=== PATIENT | female | born 1950 | race Caucasian/White ===

== ENCOUNTER 2021-04-26 15:24 | Outpatient (CLI) | payer MEDICARE ==
--- NOTE | 2021-04-26 17:11 | XRAY Report ---
PROCEDURE: Foot 2 View LT INDICATIONS: FOOT JOINT PAIN,LEFT TECHNIQUE: 2 views of the foot were acquired. COMPARISON: None FINDINGS: Bones: No fractures or dislocations. No suspicious bony lesions. Scattered IP degenerative narrowi ng. Soft tissues: No tibiotalar joint effusion. Achilles tendon appears normal. IMPRESSION: Scattered degenerative change. No visualized acute fracture or dislocation. However, occult injury ca nnot be excluded. Recommend short interval imaging follow-up in 7-10 days as clinically indicated for additional evaluation. Reviewed by: Hannah Nazario MD on 04/26/2021 5:10 PM PDT Approved by: Hannah Nazario MD on 04/26/2021 5:10 PM PDT Station ID: [id number]
== END 2021-04-26 15:25 | disposition home or self-care (01) ==
LOC: DI 15:24
PROVIDERS: ATTEND Internal Medicine
DX: M19.072 Primary osteoarthritis, left ankle and foot (principal)

== ENCOUNTER 2021-05-17 15:23 | Outpatient (CLI) | payer MEDICARE ==
--- NOTE | 2021-05-17 15:55 | XRAY Report ---
PROCEDURE: Knee 2 View LT INDICATIONS: LEFT KNEE PAIN TECHNIQUE: 2 views of the left knee(s) were acquired. COMPARISON: None. FINDINGS: No acute fracture identified. Chondrocalcinosis projecting in the medial compartment. There is mild m edial joint space narrowing. No joint effusion. Scattered subchondral sclerosis and spurring. IMPRESSION: Mild osteoarthritis. Chondrocalcinosis. If the patient's pain or other symptoms persist, consider further evaluation with MRI. Reviewed by: Delvis Kruse MD on 05/17/2021 3:54 PM PDT Approved by: Delvis Kruse MD on 05/17/2021 3:54 PM PDT Station ID: [id number]
== END 2021-05-17 15:24 | disposition home or self-care (01) ==
LOC: DI 15:23
PROVIDERS: ATTEND Internal Medicine
DX: M17.12 Unilateral primary osteoarthritis, left knee (principal); M11.262 Other chondrocalcinosis, left knee

== ENCOUNTER 2021-05-22 15:04 | Outpatient (CLI) | payer MEDICARE ==
[2021-05-22 15:25] LABS: BASOPHILS % (AUTO) 0.5 %; EOSINOPHILS # (AUTO) 0.3 10^3/uL (0.0-0.7); EOSINOPHILS % (AUTO) 4.1 %; HCT - HEMATOCRIT 39.2 % (37.0-47.0); HGB - HEMOGLOBIN 12.5 g/dL (12.0-16.0); LYMPHOCYTES # (AUTO) 1.8 10^3/uL (1.5-3.5); LYMPHOCYTES % (AUTO) 23.8 %; MEAN CORPUSCULAR HEMOGLOBIN 29.6 pg (27.0-31.0); MEAN CORPUSCULAR HGB CONC 31.9 g/dL (32.0-36.0); MEAN CORPUSCULAR VOLUME 92.7 fL (81.0-99.0); MEAN PLATELET VOLUME 9.7 fL (7.9-10.8); MONOCYTES # (AUTO) 0.5 10^3/uL (0.0-1.0); MONOCYTES % (AUTO) 6.1 %; NEUTROPHILS # (AUTO) 4.8 10^3/uL (1.5-6.6); PLT - PLATELET COUNT 256 10^3/uL (130-450); RED BLOOD COUNT 4.23 10^6/uL (4.20-5.40); RED CELL DISTRIBUTION WIDTH 13.1 % (12.0-15.0); WHITE BLOOD COUNT 7.4 x10^3/uL (4.8-10.8)
[2021-05-22 15:39] LABS: ALBUMIN 4.3 g/dL (3.2-5.5); ALBUMIN/GLOBULIN RATIO 1.6 (1.0-2.2); BILIRUBIN,TOTAL 0.6 mg/dL (0.2-1.0); CALCIUM 9.6 mg/dL (8.5-10.3)
[2021-05-22 16:13] LABS: RHEUMATOID FACTOR NEGATIVE (Negative)
--- NOTE | 2021-05-22 16:27 | XRAY Report ---
PROCEDURE: Lumbar Spine 2 View INDICATIONS: BACK PAIN TECHNIQUE: 3 views of the lumbar spine were acquired. COMPARISON: None FINDINGS: Bones: 5 xzp-cue-pzdwted vertebrae are present. There is prominent rightward scoliotic curvature wi th apex at L2-3. Diffuse osteopenia is present. Multilevel severe degenerative disc space narrowing i s present. Multilevel facet arthropathy is present. Prominent foraminal narrowing is noted all levels of the lumbar spine most severe at L3-4 and L5-S1.. No vertebral body compression fractures. No jones spicious bony lesions. Soft tissues: Overlying bowel gas pattern is normal. No suspicious soft tissue calcifications. IMPRESSION: Significant multilevel degenerative changes as well as osteopenia. Reviewed by: Hannah Nazario MD on 05/22/2021 4:26 PM PDT Approved by: Hannah Nazario MD on 05/22/2021 4:26 PM PDT Station ID: [id number]
== END 2021-05-22 15:05 | disposition home or self-care (01) ==
LOC: DI 15:04
PROVIDERS: ATTEND Internal Medicine
DX: M47.816 Spondylosis without myelopathy or radiculopathy, lumbar region (principal); M47.817 Spondylosis without myelopathy or radiculopathy, lumbosacral region; M85.88 Other specified disorders of bone density and structure, other site; I10 Essential (primary) hypertension; M41.9 Scoliosis, unspecified
CPT/HCPCS: 36415; 80053; 85025; 85651; 86430

== ENCOUNTER 2022-04-04 13:55 | Outpatient (CLI) | payer MEDICARE ==
[2022-04-04 14:11] LABS: BASOPHILS # (AUTO) 0.1 10^3/uL (0.0-0.1); EOSINOPHILS # (AUTO) 0.2 10^3/uL (0.0-0.7); EOSINOPHILS % (AUTO) 2.5 %; HCT - HEMATOCRIT 37.7 % (37.0-47.0); HGB - HEMOGLOBIN 12.6 g/dL (12.0-16.0); LYMPHOCYTES # (AUTO) 1.5 10^3/uL (1.5-3.5); LYMPHOCYTES % (AUTO) 21.5 %; MEAN CORPUSCULAR HEMOGLOBIN 30.1 pg (27.0-31.0); MEAN CORPUSCULAR HGB CONC 33.4 g/dL (32.0-36.0); MEAN PLATELET VOLUME 9.5 fL (7.9-10.8); MONOCYTES # (AUTO) 0.5 10^3/uL (0.0-1.0); MONOCYTES % (AUTO) 7.6 %; NEUTROPHILS # (AUTO) 4.7 10^3/uL (1.5-6.6); PLT - PLATELET COUNT 274 10^3/uL (130-450); RED BLOOD COUNT 4.19 10^6/uL (4.20-5.40); RED CELL DISTRIBUTION WIDTH 12.8 % (12.0-15.0); WHITE BLOOD COUNT 7.1 x10^3/uL (4.8-10.8)
[2022-04-04 14:29] LABS: ALBUMIN 4.4 g/dL (3.2-5.5); ALBUMIN/GLOBULIN RATIO 1.6 (1.0-2.2); ALKALINE PHOSPHATASE 62 IU/L (42-121); ALT ALANINE AMINOTRANSFERASE 19 IU/L (10-60); AST ASPARTATE AMINOTRANSFERASE 24 IU/L (10-42); BILIRUBIN,TOTAL 0.8 mg/dL (0.2-1.0); BUN - BLOOD UREA NITROGEN 23 mg/dL (6-20); CALCIUM 9.5 mg/dL (8.5-10.3); CARBON DIOXIDE - CO2 25 mmol/L (21-32); CHLORIDE 96 mmol/L (101-111); CHOL/HDL RATIO 3.2 (<4.4); CHOLESTEROL 239 mg/dL; CREATININE 1.3 mg/dL (0.4-1.0); GFR - MDRD 40 (>89); GLUCOSE 109 mg/dL (70-100); HDL CHOLESTEROL 74 mg/dL; LDL CHOLESTEROL,CALCULATED 147 mg/dL; SODIUM 132 mmol/L (135-145); TOTAL PROTEIN 7.2 g/dL (6.7-8.2); TRIGLYCERIDES 88 mg/dL; VLDL CHOLESTEROL 18 mg/dL
[2022-04-04 14:40] LABS: THYROID STIMULATING HORMONE 1.04 uIU/mL (0.34-5.60)
== END 2022-04-04 13:56 | disposition home or self-care (01) ==
LOC: LAB 13:55
PROVIDERS: ATTEND Nurse Practitioner Family
DX: I10 Essential (primary) hypertension (principal)
CPT/HCPCS: 36415; 80053; 80061; 83721; 84443; 85025

== ENCOUNTER 2022-08-13 11:02 | Outpatient (CLI) | payer MEDICARE ==
[2022-08-13 11:26] LABS: ALBUMIN 4.2 g/dL (3.2-5.5); ALBUMIN/GLOBULIN RATIO 1.5 (1.0-2.2); BILIRUBIN,TOTAL 0.9 mg/dL (0.2-1.0); CREATININE 1.1 mg/dL (0.4-1.0)
[2022-08-13 12:11] LABS: CALCIUM 9.9 mg/dL (8.5-10.3); POTASSIUM 4.1 mmol/L (3.5-5.0)
[2022-08-13 12:13] LABS: FECAL OCCULT BLOOD (FIT) NEGATIVE (NEGATIVE)
== END 2022-08-13 11:03 | disposition home or self-care (01) ==
LOC: LAB 11:02
PROVIDERS: ATTEND Physician Assistant
DX: R79.89 Other specified abnormal findings of blood chemistry (principal); Z51.81 Encounter for therapeutic drug level monitoring; Z13.818 Encounter for screening for other digestive system disorders; Z12.11 Encounter for screening for malignant neoplasm of colon
CPT/HCPCS: 36415; 80053; 80175; 82274

== ENCOUNTER 2023-07-16 10:44 | Outpatient (CLI) | payer MEDICARE ==
[2023-07-16 11:36] LABS: BASOPHILS # (AUTO) 0.1 10^3/uL (0.0-0.1); BASOPHILS % (AUTO) 1.1 %; EOSINOPHILS # (AUTO) 0.3 10^3/uL (0.0-0.7); EOSINOPHILS % (AUTO) 4.1 %; HCT - HEMATOCRIT 41.5 % (37.0-47.0); HGB - HEMOGLOBIN 13.6 g/dL (12.0-16.0); LYMPHOCYTES # (AUTO) 1.3 10^3/uL (1.5-3.5); LYMPHOCYTES % (AUTO) 21.1 %; MEAN CORPUSCULAR HEMOGLOBIN 30.1 pg (27.0-31.0); MEAN CORPUSCULAR HGB CONC 32.8 g/dL (32.0-36.0); MEAN CORPUSCULAR VOLUME 91.8 fL (81.0-99.0); MEAN PLATELET VOLUME 9.4 fL (7.9-10.8); MONOCYTES # (AUTO) 0.6 10^3/uL (0.0-1.0); MONOCYTES % (AUTO) 10.1 %; NEUTROPHILS # (AUTO) 3.9 10^3/uL (1.5-6.6); NEUTROPHILS % (AUTO) 63.3 %; PLT - PLATELET COUNT 283 10^3/uL (130-450); RED BLOOD COUNT 4.52 10^6/uL (4.20-5.40); RED CELL DISTRIBUTION WIDTH 12.3 % (12.0-15.0); WHITE BLOOD COUNT 6.1 x10^3/uL (4.8-10.8)
[2023-07-16 11:47] LABS: ALBUMIN 4.3 g/dL (3.2-5.5); ALBUMIN/GLOBULIN RATIO 2.3 (1.0-2.2); ALKALINE PHOSPHATASE 60 IU/L (42-121); ALT ALANINE AMINOTRANSFERASE 11 IU/L (10-60); AST ASPARTATE AMINOTRANSFERASE 15 IU/L (10-42); BILIRUBIN,TOTAL 0.7 mg/dL (0.2-1.0); BUN - BLOOD UREA NITROGEN 22 mg/dL (6-20); CALCIUM 9.8 mg/dL (8.5-10.3); CARBON DIOXIDE - CO2 26 mmol/L (21-32); CHLORIDE 105 mmol/L (101-111); CHOL/HDL RATIO 3.4 (<4.4); CHOLESTEROL 195 mg/dL; CREATININE 1.2 mg/dL (0.6-1.3); GFR - MDRD 44 (>89); GLUCOSE 96 mg/dL (74-104); HDL CHOLESTEROL 58 mg/dL; LDL CHOLESTEROL,CALCULATED 114 mg/dL; POTASSIUM 4.6 mmol/L (3.5-4.5); SODIUM 135 mmol/L (135-145); TOTAL PROTEIN 6.2 g/dL (6.4-8.9); TRIGLYCERIDES 117 mg/dL (48-352); VLDL CHOLESTEROL 23 mg/dL
[2023-07-16 12:03] LABS: THYROID STIMULATING HORMONE 0.92 uIU/mL (0.34-5.60)
== END 2023-07-16 10:45 | disposition home or self-care (01) ==
LOC: LAB 10:44
PROVIDERS: ATTEND Nurse Practitioner Family
DX: I12.9 Hypertensive chronic kidney disease with stage 1 through stage 4 chronic kidney disease, or unspecified chronic kidney disease (principal); N18.32 Chronic kidney disease, stage 3b; F39 Unspecified mood [affective] disorder; Z13.220 Encounter for screening for lipoid disorders
CPT/HCPCS: 36415; 80053; 80061; 83721; 84443; 85025

== ENCOUNTER 2023-09-10 14:55 | Outpatient (CLI) | payer MEDICARE ==
--- NOTE | 2023-09-10 15:58 | Ultrasound Report ---
PROCEDURE: Retroperitoneal INDICATIONS: CKD TECHNIQUE: Real-time scanning was performed of the retroperitoneal organs, with image documentation. COMPARISON: None. FINDINGS: Kidneys: Kidneys are normal in size. Right kidney measures 10.1 cm long; left kidney measures 8.7 c m long. Right renal cortical thickness is 1.2 cm; left renal cortical thickness is 0.9 cm. No solid masses, hydronephrosis, or nephrolithiasis. Bladder: Pre-void bladder volume is 172.0 mL. Post-void residual is 9.8 mL. Pre-void images demons trate no intraluminal masses or stones. On pre-void images, bilateral ureteral jets are noted with c olor Doppler interrogation. (Of note, ureteral jets may not be detectable in up to 25% of cases due to insufficient differences in specific gravity between ureteral and bladder urine). Miscellaneous: No free abdominal fluid. IMPRESSION: 1. Borderline small left kidney. Normal-sized right kidney. No hydronephrosis or masses. 2. Unremarkable bladder. No significant post void residual. Reviewed by: Young Henley MD on 09/10/2023 3:57 PM PDT Approved by: Young Henley MD on 09/10/2023 3:57 PM PDT Station ID: [id number]
== END 2023-09-10 14:56 | disposition home or self-care (01) ==
LOC: DI 14:55
PROVIDERS: ATTEND Internal Medicine Nephrology
DX: N18.32 Chronic kidney disease, stage 3b (principal); N32.0 Bladder-neck obstruction

== ENCOUNTER 2023-10-08 09:20 | Outpatient (CLI) | payer MEDICARE ==
--- NOTE | 2023-10-08 13:11 | XRAY Report ---
PROCEDURE: Shoulder 3 View RT INDICATIONS: RIGHT SHOULDER JOINT PAIN TECHNIQUE: 3 views of the shoulder were acquired. COMPARISON: None. FINDINGS: Bones: No fractures or dislocations. No suspicious bony lesions. Visualized ribs appear intact. Soft tissues: No suspicious soft tissue calcifications. The visualized lungs are within normal limi ts. IMPRESSION: No acute bony abnormality. If pain persists with conservative management, consider repeat radiographs in 10-14 days or cross-sectional imaging. Reviewed by: Young Henley MD on 10/08/2023 1:09 PM PST Approved by: Young Henley MD on 10/08/2023 1:09 PM [facility] Station ID: [id number]
== END 2023-10-08 09:21 | disposition home or self-care (01) ==
LOC: DI 09:20
PROVIDERS: ATTEND Nurse Practitioner Family
DX: M25.511 Pain in right shoulder (principal)

== ENCOUNTER 2023-10-30 12:08 | Outpatient (CLI) | payer MEDICARE ==
[2023-10-30 12:51] LABS: CALCIUM 10.3 mg/dL (8.5-10.3); CREATININE 0.9 mg/dL (0.6-1.3)
== END 2023-10-30 12:09 | disposition home or self-care (01) ==
LOC: LAB 12:08
PROVIDERS: ATTEND Internal Medicine Nephrology
DX: N05.9 Unspecified nephritic syndrome with unspecified morphologic changes (principal)
CPT/HCPCS: 36415; 80048

== ENCOUNTER 2023-11-08 11:51 | Outpatient (CLI) | payer MEDICARE ==
--- NOTE | 2023-11-08 16:09 | XRAY Report ---
PROCEDURE: Lumbar Spine 4V INDICATIONS: LUMBAGO TECHNIQUE: 4 views of the lumbar spine were acquired. COMPARISON: Lumbar spine radiographs 05/22/2021. FINDINGS: Bones: 5 [id number]-[id number] vertebrae are present. There is moderate to severe dextroconvex curvature c entered at the level of L3. Multilevel severe disc space narrowing and degenerative endplate changes are seen. There is multilevel facet hypertrophy. Generalized osteopenia is noted. No acute vertebral body compression fractures. No suspicious bony lesions. Soft tissues: Overlying bowel gas pattern is normal. No suspicious soft tissue calcifications. Oblique views demonstrate no pars defects. IMPRESSION: Severe multilevel spondylosis and dextroconvex curvature, mildly progressed when compare d to the exam from 05/22/2021. Reviewed by: Artur Sierra MD on 11/08/2023 4:08 PM PST Approved by: Artur Sierra MD on 11/08/2023 4:08 PM PST Station ID: [id number]
--- NOTE | 2023-11-08 16:11 | XRAY Report ---
PROCEDURE: Hips w/Pelvis 2-3V BL INDICATIONS: BILAT HIP PAIN TECHNIQUE: AP view the pelvis and lateral views of the right and left hips were acquired. COMPARISON: None. FINDINGS: Bones: No acute fractures or dislocations. No suspicious bony lesions. Degenerative changes are s een in the included spine. Mild degenerative changes are seen in the hips. Soft tissues: No suspicious soft tissue calcifications or masses. IMPRESSION: Mild symmetric bilateral hip osteoarthrosis. Degenerative changes in the included lumbar spine. Reviewed by: Artur Sierra MD on 11/08/2023 4:10 PM PST Approved by: Artur Sierra MD on 11/08/2023 4:10 PM PST Station ID: [id number]
== END 2023-11-08 11:52 | disposition home or self-care (01) ==
LOC: DI 11:51
PROVIDERS: ATTEND Nurse Practitioner Family
DX: M47.816 Spondylosis without myelopathy or radiculopathy, lumbar region (principal); M41.9 Scoliosis, unspecified; M16.0 Bilateral primary osteoarthritis of hip

== ENCOUNTER 2023-11-09 15:44 | Outpatient (CLI) | payer MEDICARE ==
--- NOTE | 2023-11-12 09:57 | MRI Report ---
PROCEDURE: SHOULDER WO - RT INDICATIONS: RIGHT SHOULDER PAIN TECHNIQUE: Noncontrast oblique coronal T2 fast spin echo with fat saturation, oblique sagittal T1 spin echo and T2 fast spin echo with fat saturation, axial T1 spin echo and T2 fast spin echo with fat saturation t hrough the shoulder. COMPARISON: X-ray right shoulder, 10/08/2023. FINDINGS: Image quality: Excellent. Rotator cuff: There is full-thickness tear of the distal supraspinatus tendon involving the anterior fibers. There is intimal tendon retraction. There is at least high-grade partial-thickness tear of the subscapularis tendon. There is likely full -thickness tear of the superior fibers of the subscapular tendon. There is severe infraspinatus tendinosis with intermediate grade partial-thickness tear. There is mil d supraspinous and subscapularis muscle atrophy on sagittal images. Bones and bursae: No bone marrow contusions or fractures. Mild acromioclavicular and moderate glenoh umeral joint degeneration. The acromion demonstrates conventional anatomy, without an os acromiale. There is small to moderate glenohumeral joint effusion. Capsule and soft tissues: There is degenerative tearing/fraying of the superior labrum. In the absen ce of intra-articular contrast, the glenohumeral ligaments appear intact. There is partial-thickness tear of the long head of the biceps tendon. No tendon rupturing or tendon dislocation. The rotator in terval appears normal, without fibrosis. The coracohumeral ligament is normal in thickness. IMPRESSION: 1. Full-thickness tear of the distal supraspinatus tendon. 2. At least high-grade partial-thickness tear of the subscapularis tendon. 3. Severe infraspinatus tendinosis with intermediate grade partial-thickness tear. 4. Mild supraspinous and subscapularis muscle atrophy. 5. Partial-thickness tear of the long head of the biceps tendon. No tendon rupturing or tendon disloc ation. 6. Moderate glenohumeral joint degeneration and mild acromioclavicular joint degeneration. 7. Qqodl-ru-yciuriyk glenohumeral joint effusion. 8. Degenerative tearing/fraying of the superior labrum. Reviewed by: Irlanda Choi MD on 11/12/2023 9:56 AM PST Approved by: Irlanda Choi MD on 11/12/2023 9:56 AM [facility] Station ID: [id number]
== END 2023-11-09 15:45 | disposition home or self-care (01) ==
LOC: DI 15:44
PROVIDERS: ATTEND Nurse Practitioner Family
DX: M75.121 Complete rotator cuff tear or rupture of right shoulder, not specified as traumatic (principal); S46.111A Strain of muscle, fascia and tendon of long head of biceps, right arm, initial encounter; M62.511 Muscle wasting and atrophy, not elsewhere classified, right shoulder

== ENCOUNTER 2023-11-25 08:00 | Outpatient (CLI) | payer MEDICARE ==
--- NOTE | 2023-11-25 15:35 | XRAY Report ---
PROCEDURE: Shoulder 2 View RT INDICATIONS: RIGHT SHOULDER PAIN TECHNIQUE: 2 views of the shoulder were acquired. COMPARISON: X-ray right shoulder 10/08/2023. FINDINGS: Bones: No fractures or dislocations. No suspicious bony lesions. Visualized ribs appear intact. Soft tissues: No suspicious soft tissue calcifications. The visualized lungs are within normal limi ts. IMPRESSION: No acute bony abnormality. Reviewed by: Stanley Hernandez MD on 11/25/2023 3:34 PM PST Approved by: Stanley Hernandez MD on 11/25/2023 3:34 PM PST Station ID: [id number]
== END 2023-11-25 23:59 | disposition home or self-care (01) ==
LOC: DI.WOS 08:00
PROVIDERS: ATTEND Orthopaedic Surgery
DX: M25.511 Pain in right shoulder (principal)

== ENCOUNTER 2023-12-03 12:34 | Emergency (ER) | payer MEDICARE ==
--- NOTE | 2023-12-03 13:20 | ED Physician Documentation ---
PD HPI HEENT - Stated complaint Stated Complaint: DIZZY/NAUSEA - Chief complaint Chief Complaint: Neuro - History obtained from History obtained from: Patient - History of Present Illness Timing - onset: How many days ago (2 days, onset yesterday morning when got out of bed, felt dizzy/room spinning when got up. Feels improved when lying/not moving, but worse with movemnet. COncurrently has had tinnitus right ear for severald ays prior. Feels off balance walking and having to hold onto alejandro/furniture to not fall.) Timing - duration: Days (11/12) Timing - details: Abrupt onset, Still present, Waxing and waning (lessens with rest, but has not had resolution of the headache nor vertigo since onset.) Location: Right ear (tinnitus), Other (also had general headache onset at time of vertigo and undulating the past 2 days.) Associated symptoms: Headache, Other (tinnitus). No: Fever, Congestion Similar symptoms before: Has not had sx before Recently seen: Clinic (sen 11/14/23 for back pain and Rx Tramadol that she has used intermittently.) Review of Systems Constitutional: denies: Fever, Chills Nose: denies: Rhinorrhea / runny nose, Congestion Throat: denies: Sore throat Respiratory: denies: Cough PD PAST MEDICAL HISTORY - Past Medical History Past Medical History: Yes Cardiovascular: Hypertension Respiratory: None Neuro: None Endocrine/Autoimmune: None GI: Chronic constipation FOUNDATION RELATIONS DIRECTOR: None : Renal insuffiency HEENT: None Psych: Anxiety Musculoskeletal: Osteoarthritis Derm: None - Past Surgical History Past Surgical History: Yes Ortho: Spine surgery, Other /FOUNDATION RELATIONS DIRECTOR: Hysterectomy - Present Medications Home Medications: Ambulatory Orders Medication Instructions Recorded Confirmed Acetaminophen [Tylenol] 1,000 mg PO BID 12/03/23 12/03/23 Buspirone HCl 10 mg PO DAILY 12/03/23 12/03/23 Fluticasone [Flonase] 1 sprays LEELEE DAILY 12/03/23 12/03/23 Gabapentin [Neurontin] 300 mg PO TID 12/03/23 12/03/23 Lisinopril [Zestril] 10 mg PO DAILY 12/03/23 12/03/23 Meclizine HCl [Motion Sickness] 25 mg PO Q6H PRN #30 tablet 12/03/23 Meloxicam 15 mg PO DAILY 12/03/23 12/03/23 Ondansetron Odt [Zofran] 4 mg TL Q6H PRN #10 tablet 12/03/23 amLODIPine [Norvasc] 10 mg PO DAILY 12/03/23 12/03/23 dexAMETHasone [Decadron] 4 mg PO DAILY #5 tablet 12/03/23 lamoTRIgine [Lamictal Xr] 200 mg PO BID 12/03/23 12/03/23 - Allergies Allergies/Adverse Reactions: Allergies Allergy/AdvReac Type Severity Reaction Status Date / Time cephalexin [From Keflex] Allergy Unknown Verified 12/03/23 12:38 - Social History Does the pt smoke?: Yes Smoking Status: Current every day smoker Does the pt drink ETOH?: No Does the pt have substance abuse?: Yes Substance Use and Type: Marijuana, CBD oil / Products - Immunizations Immunizations are current?: Yes PD ED PE NORMAL - Vitals Vital signs reviewed: Yes - General General: Alert and oriented X 3, Well developed/nourished, Other (appears uncofmortable with movement. ) - HEENT HEENT: Atraumatic, PERRL, EOMI (mild nystagmus to the right with eye movement. I am unable to characterize skew and impulse adequately. 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, No motor deficit, No sensory deficit, Normal speech Eye Opening: Spontaneous Motor: Obeys Commands Verbal: Oriented GCS Score: 15 Results - Vitals Vitals: Vital Signs - 24 hr 12/03/23 12/03/23 12/03/23 12:38 13:39 15:15 Temperature 36.6 C 36.1 C L 36.2 C L Heart Rate 66 63 62 Respiratory 18 18 18 Rate Blood Pressure 140/60 H 121/69 109/66 O2 Saturation 99 99 95 12/03/23 12/03/23 16:22 17:52 Temperature 36.4 C L 36.2 C L Heart Rate 68 70 Respiratory 18 18 Rate Blood Pressure 117/65 127/68 O2 Saturation 96 97 Oxygen O2 Source Room air - Labs Labs: Laboratory Tests 12/03/23 12/03/23 14:56 14:56 WBC 9.4 RBC 4.71 Hgb 14.0 Hct 44.2 MCV 93.8 MCH 29.7 MCHC 31.7 L RDW 12.2 Plt Count 261 MPV 10.1 Neut # (Auto) 6.1 Lymph # (Auto) 2.1 [place] # (Auto) 0.9 Eos # (Auto) 0.3 Baso # (Auto) 0.1 Absolute Nucleated RBC 0.00 Nucleated RBC % 0.0 Sodium 142 Potassium 4.1 Chloride 105 Carbon Dioxide 28 Anion Gap 9.0 BUN 22 H Creatinine 1.1 Estimated GFR (MDRD) 49 L Glucose 95 Calcium 9.6 Magnesium 2.0 Total Bilirubin 0.5 AST 14 ALT 11 Alkaline Phosphatase 68 Total Protein 6.7 Albumin 4.2 Globulin 2.5 Albumin/Globulin Ratio 1.7 Lipase 255 H - Rads (name of study) head CT Relevant Findings:: Prelim report reviewed (no ICH nor acute findings. ), EMP independent interpretation of test PD Medical Decision Making - ED course Complexity details: reviewed results, re-evaluated patient (dshe is feeling resolved vertigo with movmeent after IV fluids and antivertigo meds of Meclizine and Inapsine. It is not clearly otolithic cause and has tinnitus too, so consider neruitis or labrynthitis, in addition to concern for central. Conside MRI and ordered it after discussion with pt.), considered differential (onset po sitional vertigo increased with movment and improved resting. However, does not fade completely and associated with headache and feeling imbalance. To get labs, CT and consider MRI if negative.), d/w patient ED course: Tech finishing outpt MRI pts and was to get to ours in about 2 hours. Pt not wanting to wait that long and feels improved so she feels MRI not needed. I d iscussed idea that small CVA or MS or such could be cause. She still wants to discharge. Agreed that she is stable with improved symptoms and able to walk steadily/safely. The MRI could be done outpt if persistent symptoms. Departure - Departure Disposition: 01 Home, Self Care Clinical Impression: Acute vertigo with vomiting and inability to stand Condition: Stable Record reviewed to determine appropriate education?: Yes Instructions: ED Vertigo Unspecified Follow-Up: Julianne Lea ARNP [Primary Care Provider] - Prescriptions: dexAMETHasone [Decadron] 4 mg PO DAILY #5 tablet Meclizine HCl [Motion Sickness] 25 mg PO Q6H PRN #30 tablet PRN Reason: Vertigo Ondansetron Odt [Zofran] 4 mg TL Q6H PRN #10 tablet PRN Reason: Nausea / Vomiting Comments: Your vertigo/dizziness does sound most likely to be inner ear related with it associated on movement and also having the tinnitus, ringing in your ears. We can treat this with an antivertigo medicine called meclizine (motion sickness medicine) to help with the symptoms. Sometimes this relates to a small calcification or crystals that dislodge in the inner ear and is treated by trying to rotate to remove the crystals out of the nerve ending areas. I enclosed some instructions about Rikki maneuvers to try if the vertigo comes back significantly. However that would not usually associate with the ringing in the ears and such so I am more likely to think he has some inflammation through the inner ear and would add in Decadron anti-inflammatory for several days to get at that. It is possible to have the abrupt vertigo and feeling off balance related to causes in the brain such as small strokes. The CT scan did not show any obvious bleeding, tumors, stroke. It is quite accurate for the first 2 (bleeding and significant tumors). It can miss small strokes. If you have persistent vertigo symptoms, then it may be appropriate through your primary care or such to obtain an MRI of the brain to evaluate better for that. If your symptoms stay resolved then that would decrease his suspicion and could not necessarily need to get the imaging. Return if severe symptoms despite the above medications or other new symptoms associated with it. I sent your prescriptions to your preferred pharmacy. Forms: PCP List Discharge Date/Time: 12/03/23 18:18
[2023-12-03] MEDS ORDERED: SODIUM CHLORIDE 0.9% 1,000 ML IV STA (14:05)
[2023-12-03] MEDS ORDERED: KETOROLAC 15 MG/ML VIAL IVP STA ×2 (14:05→15:11)
[2023-12-03] MEDS ORDERED: DROPERIDOL 5 MG/2 ML VIAL IVP STA ×2 (14:05→15:11)
[2023-12-03 14:58] LABS: BASOPHILS # (AUTO) 0.1 10^3/uL (0.0-0.1); BASOPHILS % (AUTO) 0.7 %; EOSINOPHILS # (AUTO) 0.3 10^3/uL (0.0-0.7); EOSINOPHILS % (AUTO) 2.6 %; HCT - HEMATOCRIT 44.2 % (37.0-47.0); LYMPHOCYTES # (AUTO) 2.1 10^3/uL (1.5-3.5); LYMPHOCYTES % (AUTO) 22.2 %; MEAN CORPUSCULAR HEMOGLOBIN 29.7 pg (27.0-31.0); MEAN CORPUSCULAR HGB CONC 31.7 g/dL (32.0-36.0); MEAN CORPUSCULAR VOLUME 93.8 fL (81.0-99.0); MEAN PLATELET VOLUME 10.1 fL (7.9-10.8); MONOCYTES # (AUTO) 0.9 10^3/uL (0.0-1.0); NEUTROPHILS # (AUTO) 6.1 10^3/uL (1.5-6.6); NEUTROPHILS % (AUTO) 64.9 %; PLT - PLATELET COUNT 261 10^3/uL (130-450); RED BLOOD COUNT 4.71 10^6/uL (4.20-5.40); RED CELL DISTRIBUTION WIDTH 12.2 % (12.0-15.0); WHITE BLOOD COUNT 9.4 x10^3/uL (4.8-10.8)
[2023-12-03 15:20] LABS: ALBUMIN 4.2 g/dL (3.2-5.5); ALBUMIN/GLOBULIN RATIO 1.7 (1.0-2.2); BILIRUBIN,TOTAL 0.5 mg/dL (0.2-1.0); CALCIUM 9.6 mg/dL (8.5-10.3); CREATININE 1.1 mg/dL (0.6-1.3); POTASSIUM 4.1 mmol/L (3.5-4.5); TOTAL PROTEIN 6.7 g/dL (6.4-8.9)
--- NOTE | 2023-12-03 16:26 | CT Report ---
PROCEDURE: Head WO INDICATIONS: headache and vertigo abruptly TECHNIQUE: Noncontrast 4.5 mm thick angled axial sections acquired from the foramen magnum to the vertex. For r adiation dose reduction, the following was used: automated exposure control, adjustment of mA and/or kV according to patient size. COMPARISON: None. FINDINGS: Image quality: Diagnostic CSF spaces: Basal cisterns are patent. Lateral ventricles are symmetric. Volume: Generally maintained. Vascular calcifications. Brain: No intracranial hemorrhage. Sanchez-white differentiation is grossly maintained. Craniofacial structures: Partially seen team and J arthrosis. IMPRESSION: No acute intracranial abnormality. If there is high concern for parenchymal abnormality, consider MRI . Reviewed by: Igor Chacon MD on 12/03/2023 4:25 PM PST Approved by: Igor Chacon MD on 12/03/2023 4:25 PM PST Station ID: [id number]
[2023-12-03 18:00] VITALS: BP 127/68; O2SAT 97
[2023-12-03] MEDS ORDERED: dexAMETHasone 4 MG TABLET PO STA (18:03)
[2023-12-03] MEDS ORDERED: MECLIZINE 12.5 MG TABLET PO STA (18:03)
== END 2023-12-03 18:18 | disposition home or self-care (01) ==
LOC: ED 12:34
DX: R42 Dizziness and giddiness (principal); R11.10 Vomiting, unspecified; I10 Essential (primary) hypertension; F17.200 Nicotine dependence, unspecified, uncomplicated
CPT/HCPCS: 36415; 70450; 80053; 83690; 83735; 85025; 96374; 99284; A9270; J8540

== ENCOUNTER 2024-01-28 08:00 | Outpatient (CLI) | payer MEDICARE ==
--- NOTE | 2024-01-28 13:56 | XRAY Report ---
PROCEDURE: Knee 4 View BILAT INDICATIONS: BILAT KNEE PAIN TECHNIQUE: 4 views of the knee(s) were acquired. COMPARISON: X-ray right knee 2422, left 05/17/2021 FINDINGS: Bones: No fractures or dislocations. No suspicious bony lesions. There is moderate to severe tric ompartmental arthritic changes bilaterally. It is most severe in the lateral compartment on the right medial compartment on the left. Interval progression is present bilaterally over lobe most severe in the right lateral compartment. Subchondral sclerosis is most prominent as well as periarticular oste ophytes on the right. Chondrocalcinosis is present bilaterally. No distinct erosions. Soft tissues: No knee joint effusion. No suspicious soft tissue calcifications or masses. IMPRESSION: Progressive bilateral arthritic change most severe in the right lateral compartment. Reviewed by: Hannah Nazario MD on 01/28/2024 1:54 PM PDT Approved by: Hannah Nazario MD on 01/28/2024 1:54 PM PDT Station ID: [id number]
== END 2024-01-28 23:59 | disposition home or self-care (01) ==
LOC: DI.WOS 08:00
PROVIDERS: ATTEND Orthopaedic Surgery
DX: M17.0 Bilateral primary osteoarthritis of knee (principal)